=== PATIENT | male | born 1935 | race Caucasian/White ===

== ENCOUNTER 2018-07-06 06:44 | Observation (INO) ==
[2018-07-06 07:30] LABS: Hemoglobin 14.2 g/dL (12.9-16.9); Mean Corpuscular HGB Conc 34.6 g/dL (31.6-35.5); Mean Corpuscular Hemoglobin 32.3 pg (28.0-33.3); Mean Corpuscular Volume 93.4 fL (83.0-100.0); Mean Platelet Volume 10.8 fL (9.4-12.4); Platelet Count 176 K/mcL (140-400); Red Blood Count 4.39 M/mcL (4.19-5.50); Red Cell Distribution Width 12.9 % (11.5-14.5)
--- NOTE | 2018-07-06 07:35 | Emergency Department Note ---
Disposition Clinical Impression: Altered mental status Qualifiers: Altered mental status type: unspecified Qualified Code(s): R41.82 - Altered mental status, unspecified Disposition: Admitted As Inpatient Condition: Good Referrals: Fior Brasher, [employer] [Advanced Practice Nurse] - Forms: ED Satisfaction Letter Time of Disposition: 08:51 Altered Mental Status HPI - General Chief Complaint: ED Altered Mental Status Stated Complaint: fall/AMS Time Seen by Provider: 07/06/18 07:22 Source: patient, EMS Mode of arrival: EMS Limitations: no limitations Nursing Notes Reviewed: Yes Vital Signs Reviewed: Yes - History of Present Illness HPI Narrative: Pt is an 83M with last known well at 2200 on 07/05/18. Family states that pt has been confused recently and was scheduled for an MRI this morning at 0700. notes that he got up this morning at 0600, took a shower, shaved, went downstai rs and she heard a crash. When she went to investigate, she noted that the glass coffee table was broken and he was wandering around and seemed confused. When she tried to get him to sit down and talk to her, he was refusing to do as she asked and seemed combative. When EMS arrived, pt was refusing to follow commands, was babbling, and tried to sit in the refrigerator. On presentation, pt is able to follow commands, can speak clearly, and family states he is back to baseline. - Related Data Home Medications Medication Instructions Recorded Confirmed Aspirin [Adult Aspirin] 81 mg PO DAILY 07/06/18 07/06/18 Memantine [Namenda] 5 mg PO HS 07/06/18 07/06/18 Multivit-Min/FA/Lycopen/Lutein [A 1 tab PO DAILY 07/06/18 07/06/18 Thru Z Select Men 50+ Tablet] Simvastatin [Zocor] 40 mg PO HS 07/06/18 07/06/18 Allergies Allergy/AdvReac Type Severity Reaction Status Date / Time No Known Allergies Allergy Verified 07/06/18 07:31 Constitutional: Denies: fever, chills ENT ED: Denies: ear pain, throat pain Cardiovascular: Denies: chest pain, palpitations Respiratory: Denies: cough, dyspnea Gastrointestinal: Denies: abdominal pain, nausea, vomiting, diarrhea, constipation Genitourinary: Denies: urgency, dysuria Integumentary: Denies: rash, abrasion Neurological: Denies: headache, weakness Past Medical History - Past Medical History Medical history: Reports: non-contributory - Social History Smoking Status: Unknown if ever smoked Alcohol use: Reports: none Drug use: Reports: none Physical Exam - General Limitations: no limitations General appearance: alert, in no apparent distress - Head Head exam: atraumatic, normocephalic - Eye Eye exam: Present: normal appearance, PERRL, EOMI - ENT ENT exam: normal exam, normal oropharynx, mucous membranes moist - Neck Neck exam: Present: normal inspection, full ROM - Chest Chest inspection: Present: normal inspection, symmetric chest wall rise - Respiratory Respiratory exam: Present: normal lung sounds bilaterally. Absent: respiratory distress, wheezes - Cardiovascular Cardiovascular exam: Present: regular rate, normal rhythm - Abdominal Exam Abdominal exam: Present: soft, Non-Tender - Extremities Exam Extremities exam: Present: normal inspection, full ROM - Back Exam Back exam: Present: normal inspection, full ROM - Neurological Exam Neurological exam: Present: alert, oriented X3, CN II-XII intact - Expanded Neurological Exam Patient oriented to: Present: person, place, time Speech: Present: fluid speech Cranial nerves: EOM function (II, III, IV, ): Normal, facial sensation (V): Normal, facial palsy (VII): Normal, spinal accessory function (XI): Normal, tongue deviation (XII): Normal Cerebellar function: finger to nose: Normal, heel to galicia: Normal Motor strength - LUE: 5/5 Motor strength - RUE: 5/5 Motor strength - LLE: 5/5 Motor strength - RLE: 5/5 Upper motor neuron exam: tawana neglect: Absent bilaterally, pronator drift: Abs ent bilaterally, sensory extinction: Absent bilaterally Sensory exam upper extremity: light touch: Normal Sensory exam lower extremity: light touch: Normal Coma Scale Eye Opening: Spontaneous Coma Scale Motor Response: Obeys Commands Coma Scale Verbal Response: Oriented Coma Scale Total: 15 - Psychiatric Psychiatric exam: Present: normal affect, normal mood - Skin Skin exam: Present: warm, dry, intact Course Course Narrative: Pt was initially evaluated on 11 point NIH stroke scale and scored 3 points - 1 point for mild facial palsy on the left, 1 point for visual field when testing lower visual christine, and one point for mild lower extremity drift during five second testing. Pt was taken to CT where he received a CT without contrast at 0705 which was negative for bleed. Pt's arrived at 0715 and stated that she believed her was back to baseline and mentating appropriately. Pt spoke with Dr. Parrish, [facility] Stroke specialist starting at 0745 who did not recommend tPA but did recommend workup for altered mental status with MRI. - Reevaluation(s) Reevaluation #1: Pt resting comfortably in bed with at bedside. Pt encouraged to give urine specimen for testing. Will be moved to room 22. CXR showed some mild bibasilar opacities that could be consistent with PNA, but pt and family state that pt has not had any recent fevers, no coughing, reports "virus-like symptoms" the week after rosette, but has been well for the last several weeks. Time: 08:03 Vital Signs Temperature 97.5 F L 07/06/18 06:45 Pulse Rate 81 07/06/18 06:45 Respiratory Rate 18 07/06/18 06:45 Blood Pressure 131/69 07/06/18 06:45 O2 Sat by Pulse Oximetry 96 07/06/18 06:45 Temperature 97.5 F L 07/06/18 06:45 Pulse Rate 67 07/06/18 08:30 Respiratory Rate 18 07/06/18 08:30 Blood Pressure 159/85 07/06/18 08:30 O2 Sat by Pulse Oximetry 100 07/06/18 08:30 Oxygen Delivery Oxygen Delivery Room Air Altered Mental Status - MDM Narrative Medical decision making narrative: Pt initially presented as a stroke alert, but does not have any focal deficits now, is A&Ox3, GCS 15, was evaluated by [facility] and found to not be a candidate for tPA, does not have any lab abnormalities. states that patient is back to baseline. Pt has recently been under evaluation for mental status changes, dizzy spells, and was scheduled to have an MRI today at 0700. Pt was recently started on memantine for memory problems. Pt will need to be admitted for further workup of AMS. Spoke with Dr. Marroquin who agrees to accept patient and requests bed on 2A. Pt remained stable while in the department. Pt was given an opportunity to ask questions and all concerns were addressed. Pt verbalized understanding and agreement with the plan. - Differential Diagnosis Likely: altered mental status - Medical Records Medical records reviewed: Yes I reviewed the patient's medical records. - Lab Data Lab results reviewed: Yes I reviewed the patient's lab results. Result diagrams: 07/06/18 06:57 07/06/18 06:57 Lab Results 07/06/18 07/06/18 07/06/18 Range/Units 06:57 06:57 06:57 WBC 5.9 (4.3-11.1) K/mcL RBC 4.39 (4.19-5.50) M/mcL Hgb 14.2 (12.9-16.9) g/dL Hct 41.0 (37.5-50.1) % MCV 93.4 (83.0-100.0) fL MCH 32.3 (28.0-33.3) pg MCHC 34.6 (31.6-35.5) g/dL RDW 12.9 (11.5-14.5) % Plt Count 176 (140-400) K/mcL MPV 10.8 (9.4-12.4) fL Immature Gran % 0.7 (0-4) % Seg Neutrophils % 64.0 % Lymphocytes % 22.3 % Monocytes % 11.3 % Eosinophils % 1.4 % Basophils % 0.3 % Neutrophils # 3.7 (1.6-8.9) K/mcL Lymphocytes # 1.3 (0.6-4.6) K/mcL Monocytes # 0.7 (0.0-1.3) K/mcL Eosinophils # 0.1 (0.0-0.6) K/mcL Basophils # 0.0 (0.0-0.2) K/mcL PT 11.8 (9.4-12.1) Seconds INR 1.0 APTT 30.4 (26.0-36.0) Seconds Sodium 133 L (136-145) mEq/L Potassium 4.3 (3.5-5.1) mEq/L Chloride 101 (98-107) mEq/L Carbon Dioxide 25 (23-29) mEq/L BUN 17 (8-23) mg/dL Creatinine 1.73 H (0.70-1.30) mg/dL Est GFR ( Amer) 46 L (> 60) Est GFR (Non-Af Amer) 38 L (> 60) BUN/Creatinine Ratio 10 (6-26) Glucose 102 (70-105) mg/dL Calculated Osmolality 278 L (280-300) Calcium 9.3 (8.6-10.3) mg/dL Total Bilirubin 0.7 (0.3-1.0) mg/dL Direct Bilirubin 0.2 (0.0-0.2) mg/dL Indirect Bilirubin 0.5 (0.0-1.2) mg/dL AST 20 (13-39) Units/L ALT 17 (7-52) Units/L Alkaline Phosphatase 68 (34-104) Units/L Troponin I < 0.03 (< 0.04) ng/mL Serum Total Protein 7.2 (6.4-8.9) g/dL Albumin 4.2 (3.5-5.7) g/dL Globulin 3.0 (2.4-3.5) g/dL Albumin/Globulin Ratio 1.4 (1.1-2.2) Urine Color (Yellow) Urine Clarity (Clear) Urine pH (5.0-8.0) pH Units Ur Specific [place] (1.010-1.025) Urine Protein (Neg-Trace) mg/dL Urine Glucose (UA) (Normal) mg/dL Urine Ketones (Negative) mg/dL Urine Blood (Negative) Urine Nitrite (Negative) Urine Bilirubin (Negative) Urine Urobilinogen (Normal) mg/dL Ur Leukocyte Esterase (Negative) 07/06/18 Range/Units 08:16 WBC (4.3-11.1) K/mcL RBC (4.19-5.50) M/mcL Hgb (12.9-16.9) g/dL Hct (37.5-50.1) % MCV (83.0-100.0) fL MCH (28.0-33.3) pg MCHC (31.6-35.5) g/dL RDW (11.5-14.5) % Plt Count (140-400) K/mcL MPV (9.4-12.4) fL Immature Gran % (0-4) % Seg Neutrophils % % Lymphocytes % % Monocytes % % Eosinophils % % Basophils % % Neutrophils # (1.6-8.9) K/mcL Lymphocytes # (0.6-4.6) K/mcL Monocytes # (0.0-1.3) K/mcL Eosinophils # (0.0-0.6) K/mcL Basophils # (0.0-0.2) K/mcL PT (9.4-12.1) Seconds INR APTT (26.0-36.0) Seconds Sodium (136-145) mEq/L Potassium (3.5-5.1) mEq/L Chloride (98-107) mEq/L Carbon Dioxide (23-29) mEq/L BUN (8-23) mg/dL Creatinine (0.70-1.30) mg/dL Est GFR ( Amer) (> 60) Est GFR (Non-Af Amer) (> 60) BUN/Creatinine Ratio (6-26) Glucose (70-105) mg/dL Calculated Osmolality (280-300) Calcium (8.6-10.3) mg/dL Total Bilirubin (0.3-1.0) mg/dL Direct Bilirubin (0.0-0.2) mg/dL Indirect Bilirubin (0.0-1.2) mg/dL AST (13-39) Units/L ALT (7-52) Units/L Alkaline Phosphatase (34-104) Units/L Troponin I (< 0.04) ng/mL Serum Total Protein (6.4-8.9) g/dL Albumin (3.5-5.7) g/dL Globulin (2.4-3.5) g/dL Albumin/Globulin Ratio (1.1-2.2) Urine Color Yellow (Yellow) Urine Clarity Clear (Clear) Urine pH 6.0 (5.0-8.0) pH Units Ur Specific [place] 1.014 (1.010-1.025) Urine Protein 30 H (Neg-Trace) mg/dL Urine Glucose (UA) Normal (Normal) mg/dL Urine Ketones Negative (Negative) mg/dL Urine Blood Negative (Negative) Urine Nitrite Negative (Negative) Urine Bilirubin Negative (Negative) Urine Urobilinogen Normal (Normal) mg/dL Ur Leukocyte Esterase Negative (Negative) - Radiology Data Radiology results reviewed: Yes I reviewed the patient's radiology results. Head CT 07/06/18 07:02 IMPRESSION: No acute intracranial abnormality. Moderate parenchymal volume loss. Moderate chronic microvascular disease. Sinus mucosal disease. The results were reported to Dr. Angel at 7:22 a.m. on July 06, 2018. D/ / Benitez Rucker MD / Benitez Rucker MD Interpreting Provider: Benitez Rucker MD Chest X-Ray 07/06/18 07:23 IMPRESSION: Nonspecific basilar reticular lung opacities which may reflect chronic lung disease or potentially atypical pneumonia. D/ / Eleazar Aguilera MD / Eleazar Aguilera MD Interpreting Provider: Eleazar Aguilera MD Checklist - LKW: 3-4.5 hrs Add. Warnings/Precautions Patient/family understanding: The patient/family members have been counseled and understood the risk, benefit, and alternatives of treatment. NIH Stroke Scale - Level of Consciousness LOC: Alert - LOC Questions LOC Questions: Answers both correctly - LOC Commands LOC Commands: Performs both correctly - Best Gaze Best Gaze: Normal - Visual Visual: Partial hemianopia - Facial Palsy Facial Palsy: Minor asymmetry on smiling, flattened nasolabial fold - Motor Arms Motor Arm-Left: No drift for 10 seconds Motor Arm-Right: No drift for 10 seconds - Motor Legs Motor Leg-Left: Drift, does NOT hit bed Motor Leg-Right: No drift for 5 seconds - Limb Ataxia Limb Ataxia: Absent of affected limb too weak to perform exam - Sensory Sensory: Normal - Best Language Best Language: No aphasia - Dysarthria Dysarthria: Normal - Extinction and Inattention Extinction and Inattention: Normal - NIHSS Total Score NIHSS Total Score: 3
[2018-07-06 07:38] LABS: Prothrombin Time 11.8 Seconds (9.4-12.1)
[2018-07-06 07:41] LABS: Activated Partial Thrombo Time 30.4 Seconds (26.0-36.0)
--- NOTE | 2018-07-06 07:41 | Emergency Department Note ---
Disposition Clinical Impression: Altered mental status Disposition: Admitted As Inpatient Condition: Good General Adult HPI - General Chief complaint: ED Altered Mental Status Stated complaint: fall/AMS Time Seen by Provider: 07/06/18 07:22 Source: patient, EMS Limitations: no limitations Nursing Notes Reviewed: Yes Vital Signs Reviewed: Yes - History of Present Illness Pain Scale: 0 - Related Data Home Medications Medication Instructions Recorded Confirmed Aspirin [Adult Aspirin] 81 mg PO DAILY 07/06/18 07/06/18 Memantine [Namenda] 5 mg PO HS 07/06/18 07/06/18 Multivit-Min/FA/Lycopen/Lutein [A 1 tab PO DAILY 07/06/18 07/06/18 Thru Z Select Men 50+ Tablet] Simvastatin [Zocor] 40 mg PO HS 07/06/18 07/06/18 Allergies Allergy/AdvReac Type Severity Reaction Status Date / Time No Known Allergies Allergy Verified 07/06/18 07:31 Past Medical History - Past Medical History Medical history: Reports: non-contributory - Social History Smoking Status: Unknown if ever smoked Alcohol use: Reports: none Drug use: Reports: none Physical Exam - General Limitations: no limitations General appearance: alert, in no apparent distress Course Vital Signs Temperature 97.5 F L 07/06/18 06:45 Pulse Rate 81 07/06/18 06:45 Respiratory Rate 18 07/06/18 06:45 Blood Pressure 131/69 07/06/18 06:45 O2 Sat by Pulse Oximetry 96 07/06/18 06:45 Temperature 97.5 F L 07/06/18 06:45 Pulse Rate 64 07/06/18 09:44 Respiratory Rate 18 07/06/18 09:44 Blood Pressure 159/81 07/06/18 09:44 O2 Sat by Pulse Oximetry 100 07/06/18 08:30 Oxygen Delivery Oxygen Delivery Room Air Medical Decision Making - [facility] Narrative Medical decision making narrative: 0740 hrs.: Spoke with [facility] tele-neurology service. Waiting on their evaluation. Head CT 07/06/18 07:02 IMPRESSION: No acute intracranial abnormality. Moderate parenchymal volume loss. Moderate chronic microvascular disease. Sinus mucosal disease. The results were reported to Dr. Angel at 7:22 a.m. on July 06, 2018. D/ / Benitez Rucker MD / Benitez Rucker MD Interpreting Provider: Benitez Rucker MD Head CT 07/06/18 07:02 IMPRESSION: No acute intracranial abnormality. Moderate parenchymal volume loss. Moderate chronic microvascular disease. Sinus mucosal disease. The results were reported to Dr. Angel at 7:22 a.m. on July 06, 2018. D/ / Benitez Rucker MD / Benitez Rucker MD Interpreting Provider: Benitez Rucker MD Chest X-Ray 07/06/18 07:23 IMPRESSION: Nonspecific basilar reticular lung opacities which may reflect chronic lung disease or potentially atypical pneumonia. D/ / Eleazar Aguilera MD / Eleazar Aguilera MD Interpreting Provider: Eleazar Aguilera MD 950 hours: Patient stable. He is getting admitted here at hospitals accepted. - Lab Data Result diagrams: 07/06/18 06:57 07/06/18 06:57 Lab Results 07/06/18 07/06/18 07/06/18 Range/Units 06:57 06:57 06:57 WBC 5.9 (4.3-11.1) K/mcL RBC 4.39 (4.19-5.50) M/mcL Hgb 14.2 (12.9-16.9) g/dL Hct 41.0 (37.5-50.1) % MCV 93.4 (83.0-100.0) fL MCH 32.3 (28.0-33.3) pg MCHC 34.6 (31.6-35.5) g/dL RDW 12.9 (11.5-14.5) % Plt Count 176 (140-400) K/mcL MPV 10.8 (9.4-12.4) fL Immature Gran % 0.7 (0-4) % Seg Neutrophils % 64.0 % Lymphocytes % 22.3 % Monocytes % 11.3 % Eosinophils % 1.4 % Basophils % 0.3 % Neutrophils # 3.7 (1.6-8.9) K/mcL Lymphocytes # 1.3 (0.6-4.6) K/mcL Monocytes # 0.7 (0.0-1.3) K/mcL Eosinophils # 0.1 (0.0-0.6) K/mcL Basophils # 0.0 (0.0-0.2) K/mcL PT 11.8 (9.4-12.1) Seconds INR 1.0 APTT 30.4 (26.0-36.0) Seconds Sodium 133 L (136-145) mEq/L Potassium 4.3 (3.5-5.1) mEq/L Chloride 101 (98-107) mEq/L Carbon Dioxide 25 (23-29) mEq/L BUN 17 (8-23) mg/dL Creatinine 1.73 H (0.70-1.30) mg/dL Est GFR ( Amer) 46 L (> 60) Est GFR (Non-Af Amer) 38 L (> 60) BUN/Creatinine Ratio 10 (6-26) Glucose 102 (70-105) mg/dL Calculated Osmolality 278 L (280-300) Calcium 9.3 (8.6-10.3) mg/dL Total Bilirubin 0.7 (0.3-1.0) mg/dL Direct Bilirubin 0.2 (0.0-0.2) mg/dL Indirect Bilirubin 0.5 (0.0-1.2) mg/dL AST 20 (13-39) Units/L ALT 17 (7-52) Units/L Alkaline Phosphatase 68 (34-104) Units/L Troponin I < 0.03 (< 0.04) ng/mL Serum Total Protein 7.2 (6.4-8.9) g/dL Albumin 4.2 (3.5-5.7) g/dL Globulin 3.0 (2.4-3.5) g/dL Albumin/Globulin Ratio 1.4 (1.1-2.2) Urine Color (Yellow) Urine Clarity (Clear) Urine pH (5.0-8.0) pH Units Ur Specific [place] (1.010-1.025) Urine Protein (Neg-Trace) mg/dL Urine Glucose (UA) (Normal) mg/dL Urine Ketones (Negative) mg/dL Urine Blood (Negative) Urine Nitrite (Negative) Urine Bilirubin (Negative) Urine Urobilinogen (Normal) mg/dL Ur Leukocyte Esterase (Negative) Urine Microscopic RBC (0-3) per hpf Urine Microscopic WBC (0-3) per hpf Ur Squamous Epith Cells (None-Few) per lpf Urine Bacteria (None-Few) per hpf Hyaline Casts (None-Few) per lpf Ur Culture Indicated? (NO) 07/06/18 Range/Units 08:16 WBC (4.3-11.1) K/mcL RBC (4.19-5.50) M/mcL Hgb (12.9-16.9) g/dL Hct (37.5-50.1) % MCV (83.0-100.0) fL MCH (28.0-33.3) pg MCHC (31.6-35.5) g/dL RDW (11.5-14.5) % Plt Count (140-400) K/mcL MPV (9.4-12.4) fL Immature Gran % (0-4) % Seg Neutrophils % % Lymphocytes % % Monocytes % % Eosinophils % % Basophils % % Neutrophils # (1.6-8.9) K/mcL Lymphocytes # (0.6-4.6) K/mcL Monocytes # (0.0-1.3) K/mcL Eosinophils # (0.0-0.6) K/mcL Basophils # (0.0-0.2) K/mcL PT (9.4-12.1) Seconds INR APTT (26.0-36.0) Seconds Sodium (136-145) mEq/L Potassium (3.5-5.1) mEq/L Chloride (98-107) mEq/L Carbon Dioxide (23-29) mEq/L BUN (8-23) mg/dL Creatinine (0.70-1.30) mg/dL Est GFR ( Amer) (> 60) Est GFR (Non-Af Amer) (> 60) BUN/Creatinine Ratio (6-26) Glucose (70-105) mg/dL Calculated Osmolality (280-300) Calcium (8.6-10.3) mg/dL Total Bilirubin (0.3-1.0) mg/dL Direct Bilirubin (0.0-0.2) mg/dL Indirect Bilirubin (0.0-1.2) mg/dL AST (13-39) Units/L ALT (7-52) Units/L Alkaline Phosphatase (34-104) Units/L Troponin I (< 0.04) ng/mL Serum Total Protein (6.4-8.9) g/dL Albumin (3.5-5.7) g/dL Globulin (2.4-3.5) g/dL Albumin/Globulin Ratio (1.1-2.2) Urine Color Yellow (Yellow) Urine Clarity Clear (Clear) Urine pH 6.0 (5.0-8.0) pH Units Ur Specific [place] 1.014 (1.010-1.025) Urine Protein 30 H (Neg-Trace) mg/dL Urine Glucose (UA) Normal (Normal) mg/dL Urine Ketones Negative (Negative) mg/dL Urine Blood Negative (Negative) Urine Nitrite Negative (Negative) Urine Bilirubin Negative (Negative) Urine Urobilinogen Normal (Normal) mg/dL Ur Leukocyte Esterase Negative (Negative) Urine Microscopic RBC 0-3 (0-3) per hpf Urine Microscopic WBC 0-3 (0-3) per hpf Ur Squamous Epith Cells Few (None-Few) per lpf Urine Bacteria Few (None-Few) per hpf Hyaline Casts Few (None-Few) per lpf Ur Culture Indicated? NO (NO) Critical Care Time Critical Care Time: Yes Total Critical Care Time: 35 Attestation: Excluding any separately billable procedures. Attestation Statement - Attestation Attestation: This documentation is done with the assistance of Dragon dictation. Despite efforts made to ensure accuracy, there may be inaccuracies in snow removal/plowing or spelling and typographical errors. I examined this patient and my medical decision-making was reviewed with the Resident Physician. I agree with the documented findings, disposition and treatment plan as described except to the extent set forth below. Patient seen and evaluated by Dr. Allen and myself, I agree with her evaluation management plan, I supervised the care the patient's stay. Patient's in the process of a workup for altered mental status. From what says over the past few months he has had increasing forgetfulness and they think this could be dementia versus Alzheimer's. He is on a medication that they think starts with an M, she is uncertain of the name. However they started that back in April. He was actually scheduled for an MRI this morning. Said they went to bed about 10:00 last night he had no complaints. Then when he was up this morning she came down and noticed that he was confused wandering, the coffee table was upset and he is not certain what was going on. She called radhaad. They noticed no focal deficits. He was called as a stroke alert here by the overnight physician and was in CT. However on exam he has no deficits. His states he is back to his normal mental status. His initial stroke CT shows no acute deficits. Read by radiology and over read by us. We will finish with the workup here and then most likely be an admission. I do not think he qualifies for TPA at this time due to more than 4 hours since his last known well and he is back to his baseline at this point. We will speak to [facility] tele-neurology service.
[2018-07-06 07:45] LABS: Alanine Aminotransferase 17 Units/L (7-52); Albumin 4.2 g/dL (3.5-5.7); Albumin/Globulin Ratio 1.4 (1.1-2.2); Alkaline Phosphatase 68 Units/L (34-104); Aspartate Amino Transferase 20 Units/L (13-39); BUN/Creatinine Ratio 10 (6-26); Bilirubin,Direct 0.2 mg/dL (0.0-0.2); Bilirubin,Indirect 0.5 mg/dL (0.0-1.2); Bilirubin,Total 0.7 mg/dL (0.3-1.0); Blood Urea Nitrogen 17 mg/dL (8-23); Calcium 9.3 mg/dL (8.6-10.3); Carbon Dioxide 25 mEq/L (23-29); Chloride 101 mEq/L (98-107); Glucose 102 mg/dL (70-105); Osmolality,Calculated 278 (280-300); Potassium 4.3 mEq/L (3.5-5.1); Sodium 133 mEq/L (136-145); Total Protein 7.2 g/dL (6.4-8.9); Troponin I < 0.03 ng/mL (< 0.04); eGFR For Non-African Americans 38 (> 60)
[2018-07-06 07:49] LABS: Basophils % 0.3 %; Eosinophils # 0.1 K/mcL (0.0-0.6); Eosinophils % 1.4 %; Immature Granulocytes % 0.7 % (0-4); Lymphocytes # 1.3 K/mcL (0.6-4.6); Lymphocytes % 22.3 %; Monocytes # 0.7 K/mcL (0.0-1.3); Monocytes % 11.3 %; Neutrophils # 3.7 K/mcL (1.6-8.9)
[2018-07-06 08:22] LABS: Bilirubin,Urine Negative (Negative); Blood,Urine Negative (Negative); Clarity,Urine Clear (Clear); Color,Urine Yellow (Yellow); Glucose,Urine (UA) Normal (Normal); Ketones,Urine Negative (Negative); Leukocyte Esterase,Urine Negative (Negative); Nitrite,Urine Negative (Negative); Protein,Urine 30 mg/dL (Neg-Trace); Specific Gravity,Urine 1.014 (1.010-1.025); Urobilinogen,Urine Normal (Normal)
[2018-07-06 08:45] LABS: RBC,Urine 0-3 per hpf (0-3)
[2018-07-06 08:58] LABS: Squamous Epithelial Cell,Urine Few per lpf (None-Few)
[2018-07-06 08:59] LABS: Bacteria,Urine Few per hpf (None-Few); Hyaline Casts,Urine Few per lpf (None-Few); WBC,Urine 0-3 per hpf (0-3)
--- NOTE | 2018-07-06 11:51 | Electrocardiograph Report ---
[address] [place], [place] [address] Test Date: 2018-07-06 Pat Name: Bony Calderon Department: [id number] Room: 3B41 Gender: M Gauger Chief: : 1935 Requested By: Navya Allen Order Number: [id number] Reading MD: Lester Tovar Measurements Intervals [place] Rate: 71 P: 47 KS: 168 QRS: 34 QRSD: 88 T: 58 QT: 410 QTc: 446 Interpretive Statements Sinus rhythm Ventricular premature complex Electronically Signed On 07-06-2018 11:49:38 EST by Lester Tovar
[2018-07-06] MEDS ORDERED: Naloxone 0.4 MG/ML INJ IVP PRN (12:33)
--- NOTE | 2018-07-06 21:29 | Internal Med History&Physical ---
Date of Encounter: 07/06/18 Time of Encounter: 11:00 Internal Medicine - H&P: HPI Chief complaint: Confusion Admitted From: Home Plans for Post Hospital Care: Home History of present illness: Patient is 83-year-old male with past medical history significant for hyperlipidemia with new concerns for of memory loss with suspicion of new onset of dementia who presents to the ER on 07/06/18 due to confusion. who is present at bedside reports that patient has experienced memory loss dating back to November 2017 where his activities of daily living such as cooking and going grocery shopping has decreased. She has also been forgetful with conversations. Patient was recently started on Namenda by primary care provider. reports that today however patient appeared to be more confused and not making sense of brought him into the ER for evaluation. In the ER CT of the head showed no acute intracranial abnormalities. Patient will be admitted to the observation unit for CVA/TIA workup Past Med Surg Social Fam HX - Past Medical History Medical history: non-contributory - Past Surgical History Surgical History: no surgical history - Social History Smoking Status: Unknown if ever smoked Alcohol use: none Drug use: none - Family History Mother History Unknown: Yes Living Status: Father History Unknown: Yes Living Status: Internal Medicine - H&P: Meds Aspirin [Adult Aspirin] 81 mg PO DAILY 07/06/18 [History] Memantine [Namenda] 5 mg PO HS 07/06/18 [History] Multivit-Min/FA/Lycopen/Lutein [A Thru Z Select Men 50+ Tablet] 1 tab PO DAILY 07/06/18 [History] Simvastatin [Zocor] 40 mg PO HS 07/06/18 [History] Allergy/AdvReac Type Severity Reaction Status Date / Time No Known Allergies Allergy Verified 07/06/18 07:31 All Systems PM: A 10-system review of systems was performed and is negative for pertinent findings except as documented above in the HPI. - Constitutional Vitals: Temp Pulse Resp BP Pulse Ox 97.6 F 72 14 116/77 96 07/06/18 19:06 07/06/18 19:06 07/06/18 19:06 07/06/18 19:06 07/06/18 19:06 General appearance: Present: A&O X 3 Exam: As above - Head Head exam: Present: normocephalic - Eye Eye exam: Present: normal appearance, nystagmus - ENT ENT exam: Present: mucous membranes moist - Respiratory Respiratory exam: Present: CTAB. Absent: accessory muscle use, rales, rhonchi, wheezes - Cardiovascular Cardiovascular exam: Present: RRR, +S1, +S2. Absent: diastolic murmur, gallop, rubs, systolic murmur - Extremities Exam Extremities exam: Absent: pedal edema - Expanded Neurological Exam Neurological exam expanded: Absent: expressive aphasia Speech: Present: fluid speech. Absent: expressive aphasia, stutter Cranial Nerves: nystagmus PM: Normal, tongue deviation PM: Normal Neuro motor strength exam: LUE: 5, RUE: 5, LLE: 5, RLE: 5 - Psychiatric Psychiatric exam: Present: normal mood - Skin Skin exam: Present: normal color Internal Med - H&P Results - Labs CBC & Chem 7: 07/06/18 06:57 07/06/18 06:57 Labs: Short CBC 07/06/18 Range/Units 06:57 WBC 5.9 (4.3-11.1) K/mcL Hgb 14.2 (12.9-16.9) g/dL Hct 41.0 (37.5-50.1) % Plt Count 176 (140-400) K/mcL Neutrophils # 3.7 (1.6-8.9) K/mcL BMP 07/06/18 06:57 Sodium 133 L Potassium 4.3 Chloride 101 Carbon Dioxide 25 BUN 17 Creatinine 1.73 H Glucose 102 Calcium 9.3 Cardiac Enzymes 07/06/18 Range/Units 06:57 Troponin I < 0.03 (< 0.04) ng/mL Liver Function 07/06/18 Range/Units 06:57 Total Bilirubin 0.7 (0.3-1.0) mg/dL Direct Bilirubin 0.2 (0.0-0.2) mg/dL AST 20 (13-39) Units/L ALT 17 (7-52) Units/L Alkaline Phosphatase 68 (34-104) Units/L Albumin 4.2 (3.5-5.7) g/dL Urine 07/06/18 Range/Units 08:16 Urine Color Yellow (Yellow) Urine Clarity Clear (Clear) Urine pH 6.0 (5.0-8.0) pH Units Ur Specific [place] 1.014 (1.010-1.025) Urine Protein 30 H (Neg-Trace) mg/dL Urine Glucose (UA) Normal (Normal) mg/dL - Impressions ITS Impressions Head CT 07/06/18 07:02 IMPRESSION: No acute intracranial abnormality. Moderate parenchymal volume loss. Moderate chronic microvascular disease. Sinus mucosal disease. The results were reported to Dr. Angel at 7:22 a.m. on July 06, 2018. D/ / Benitez Rucker MD / Benitez Rucker MD Interpreting Provider: Benitez Rucker MD Chest X-Ray 07/06/18 07:23 IMPRESSION: Nonspecific basilar reticular lung opacities which may reflect chronic lung disease or potentially atypical pneumonia. D/ / Eleazar Aguilera MD / Eleazar Aguilera MD Interpreting Provider: Eleazar Aguilera MD Brain MRI 07/06/18 11:03 IMPRESSION: Cerebral atrophy. Chronic small vessel ischemic changes. No acute intracranial abnormality. D/ / 07/06/2018 15:07:41 Iza Dean MD / yessi Interpreting Provider: Iza Dean MD Head MRA 07/06/18 11:03 IMPRESSION: Mild, less than 50%, stenosis of the right internal carotid artery by NASCET criteria. Moderate, 50% to 69%, stenosis of the left internal carotid artery by NASCET criteria. D/ / 07/06/2018 14:32:16 Manuel Otto MD / héctor Interpreting Provider: Manuel Otto MD Neck MRA 07/06/18 11:03 IMPRESSION: Mild, less than 50%, stenosis of the right internal carotid artery by NASCET criteria. Moderate, 50% to 69%, stenosis of the left internal carotid artery by NASCET criteria. D/ / 07/06/2018 14:32:16 Manuel Otto MD / héctor Interpreting Provider: Manuel Otto MD - Assessment and plan (1) Altered mental status Current Visit: Yes Status: Acute Assessment and plan: Patient presents with confusion which has resolved on examination CT of the head negative for any acute intracranial findings MRI/MRA of brain pending Consult neurology and appreciate recommendations Qualifiers: Altered mental status type: unspecified Qualified Code(s): R41.82 - Altered mental status, unspecified (2) Memory loss Current Visit: Yes Status: Acute Assessment and plan: Continue home medication on Namenda (3) HLD (hyperlipidemia) Current Visit: Yes Status: Acute Assessment and plan: Continue statin Qualifiers: Hyperlipidemia type: unspecified Qualified Code(s): E78.5 - Hyperlipidemia, unspecified (4) DVT prophylaxis Current Visit: Yes Status: Acute Assessment and plan: DVT prophylaxis - Time Spent With Patient Total time spent is greater than 50% in coordination of care (as documented) at patient's floor/unit and/or counseling patient:
[2018-07-06] MEDS: *HR* Heparin 5,000 UNIT/ML VIAL SQ SCH (23:18)
[2018-07-07 04:36] LABS: Basophils % 0.2 %; Eosinophils # 0.1 K/mcL (0.0-0.6); Eosinophils % 1.1 %; Hematocrit 35.5 % (37.5-50.1); Immature Granulocytes % 0.6 % (0-4); Lymphocytes # 1.4 K/mcL (0.6-4.6); Lymphocytes % 29.1 %; Mean Corpuscular HGB Conc 34.4 g/dL (31.6-35.5); Mean Corpuscular Hemoglobin 31.9 pg (28.0-33.3); Mean Corpuscular Volume 92.7 fL (83.0-100.0); Mean Platelet Volume 10.8 fL (9.4-12.4); Monocytes # 0.7 K/mcL (0.0-1.3); Monocytes % 14.8 %; Neutrophils # 2.5 K/mcL (1.6-8.9); Platelet Count 139 K/mcL (140-400); Red Blood Count 3.83 M/mcL (4.19-5.50); Red Cell Distribution Width 12.8 % (11.5-14.5); Segmented Neutrophils % 54.2 %
[2018-07-07 04:40] LABS: Calcium 8.7 mg/dL (8.6-10.3); Potassium 4.4 mEq/L (3.5-5.1)
[2018-07-07 04:51] LABS: Hemoglobin 12.2 g/dL (12.9-16.9)
[2018-07-07] MEDS: *HR* Heparin 5,000 UNIT/ML VIAL SQ SCH ×3 (05:56→22:39)
--- NOTE | 2018-07-07 07:58 | Internal Med Progress Note ---
<AttilasubhashMaura marrero - Last Filed: 07/07/18 17:01> Hospitalist Progress Note - Encounter Date of Encounter: 07/07/18 - Exam Vitals: Temp Pulse Resp BP Pulse Ox 97.4 F L 66 18 139/78 95 07/07/18 15:19 07/07/18 15:19 07/07/18 15:19 07/07/18 15:19 07/07/18 15:19 - Assessment and Plan (1) Altered mental status Current Visit: Yes Status: Acute (2) Memory loss Current Visit: Yes Status: Acute (3) HLD (hyperlipidemia) Current Visit: Yes Status: Acute (4) DVT prophylaxis Current Visit: Yes Status: Acute - Time Spent with Patient Total time spent is greater than 50% in coordination of care (as documented) at patient's floor/unit and/or counseling patient: Internal Medicine: Result - Labs CBC & Chem 7: 07/07/18 04:08 07/07/18 04:08 Labs: Short CBC 07/07/18 Range/Units 04:08 WBC 4.7 (4.3-11.1) K/mcL Hgb 12.2 L D (12.9-16.9) g/dL Hct 35.5 L (37.5-50.1) % Plt Count 139 L (140-400) K/mcL Neutrophils # 2.5 (1.6-8.9) K/mcL BMP 07/07/18 04:08 Sodium 132 L Potassium 4.4 Chloride 103 Carbon Dioxide 22 L BUN 22 Creatinine 1.52 H Glucose 96 Calcium 8.7 Liver Function 07/07/18 Range/Units 14:29 AST 20 (13-39) Units/L ALT 15 (7-52) Units/L - ABG Interpretation ABG results: PT/INR, D-dimer PT 11.8 Seconds (9.4-12.1) 07/06/18 06:57 Consult Discharge Plan - Plan Referrals: Fior Brasher, [facility] [Primary Care Provider] - (Hospital follow up appointment has been requested. Office will call with date and time of appointment. ) - Attending Attestation I examined this patient and my medical decision-making was reviewed with the Resident Physician. I agree with the documented findings, disposition and treatment plan as described except to the extent set forth below. <Essence Magaña N - Last Filed: 07/07/18 22:08> Hospitalist Progress Note - Encounter Date of Encounter: 07/07/18 Time of Encounter: 07:58 - Subjective Interval History: Mr. Calderon was seen and evaluated at the bedside. He states that there is nothing wrong with him, and that he is only here to please his . He denies any confusion or changes in his health. He is attempting to remove his gown so he can leave the room, and becomes agitated when stopped. His , who is present at the bedside, states that his memory loss started last summer, but has been progressing since early fall. She reports strange behavior yesterday, which prompted her to bring him to he ED for evaluation. - Exam Vitals: Temp Pulse Resp BP Pulse Ox 97.6 F 66 15 177/89 96 07/07/18 06:47 07/07/18 06:47 07/07/18 06:47 07/07/18 06:47 07/07/18 06:47 Exam: GENERAL: Elderly male sitting in the chair at the bedside. He appears agitated and repeatedly tries to remove his gown and get out of the chair to ambulate. HEENT: Atraumatic and normocephalic. CARDIOVASCULAR: Regular rate and rhythm. S1 and S2 present. No murmurs, gallops, or rubs appreciated. RESPIRATORY: CTA bilaterally. GASTROINTESTINAL: Abdomen is soft, nontender, and nondistended. EXTREMITIES: No clubbing, cyanosis, or edema present. PSYCHIATRIC: Patient appears agitated and irritable. NEUROLOGIC: Alert and oriented to self. Denies that he is in the hospital, and states that he has been here for "a week". 5/5 muscle strength in bilateral upper and lower extremities. - Assessment and Plan (1) Altered mental status Current Visit: Yes Status: Acute Assessment and Plan: Patient has had acutely worsening memory loss and altered mental status. At the time of assessment this afternoon, he was orientd to self, but was unable to state his location or the current president correctly. He frequently tried to get up and leave the room, and became agitated when his would try to dissuade him from doing so. 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 - Sitter assigned for patient safety and to provide reassurrance/reorientation as needed - Serum TSH and B12 are within normal limits; RPR and MMA pending - Consider use of IV/IM haldol if agitation recurs/worsens - Appreciate neurology recommendations (2) Memory loss Current Visit: Yes Status: Acute Assessment and Plan: - Continue home dose of Namenda 5mg QHS (3) HLD (hyperlipidemia) Current Visit: Yes Status: Acute Assessment and Plan: - Continue home medication of simvastatin 40mg QHS (4) DVT prophylaxis Current Visit: Yes Status: Acute - Time Spent with Patient Total time spent is greater than 50% in coordination of care (as documented) at patient's floor/unit and/or counseling patient: Internal Medicine: Result - Labs CBC & Chem 7: 07/07/18 19:52 07/07/18 04:08 Labs: Short CBC 07/06/18 07/07/18 Range/Units 06:57 04:08 WBC 4.7 (4.3-11.1) K/mcL Hgb 12.2 L D (12.9-16.9) g/dL Hct 35.5 L (37.5-50.1) % Plt Count 139 L (140-400) K/mcL Neutrophils # 3.7 2.5 (1.6-8.9) K/mcL BMP 07/07/18 04:08 Sodium 132 L Potassium 4.4 Chloride 103 Carbon Dioxide 22 L BUN 22 Creatinine 1.52 H Glucose 96 Calcium 8.7 Urine 07/06/18 Range/Units 08:16 Urine Color Yellow (Yellow) Urine Clarity Clear (Clear) Urine pH 6.0 (5.0-8.0) pH Units Ur Specific [place] 1.014 (1.010-1.025) Urine Protein 30 H (Neg-Trace) mg/dL Urine Glucose (UA) Normal (Normal) mg/dL - ABG Interpretation ABG results: PT/INR, D-dimer PT 11.8 Seconds (9.4-12.1) 07/06/18 06:57 - Impressions Impressions Brain MRI 07/06/18 11:03 IMPRESSION: Cerebral atrophy. Chronic small vessel ischemic changes. No acute intracranial abnormality. D/ / 07/06/2018 15:07:41 Iza Dean MD / yessi Interpreting Provider: Iza Dean MD Head MRA 07/06/18 11:03 IMPRESSION: Mild, less than 50%, stenosis of the right internal carotid artery by NASCET criteria. Moderate, 50% to 69%, stenosis of the left internal carotid artery by NASCET criteria. D/ / 07/06/2018 14:32:16 Manuel Otto MD / héctor Interpreting Provider: Manuel Otto MD Neck MRA 07/06/18 11:03 IMPRESSION: Mild, less than 50%, stenosis of the right internal carotid artery by NASCET criteria. Moderate, 50% to 69%, stenosis of the left internal carotid artery by NASCET criteria. D/ / 07/06/2018 14:32:16 Manuel Otto MD / héctor Interpreting Provider: Manuel Otto MD ____ <Maura Nice - Last Filed: 07/07/18 17:01> (1) Altered mental status Qualifiers: Altered mental status type: unspecified Qualified Code(s): R41.82 - Altered mental status, unspecified (3) HLD (hyperlipidemia) Qualifiers: Hyperlipidemia type: unspecified Qualified Code(s): E78.5 - Hyperlipidemia, unspecified <Essence Magaña N - Last Filed: 07/07/18 22:08> (1) Altered mental status Qualifiers: Altered mental status type: unspecified Qualified Code(s): R41.82 - Altered mental status, unspecified (3) HLD (hyperlipidemia) Qualifiers: Hyperlipidemia type: unspecified Qualified Code(s): E78.5 - Hyperlipidemia, unspecified
[2018-07-07] MEDS: Aspirin Enteric Coated 81 MG Tablet PO SCH (09:21)
[2018-07-07] MEDS: Multivit/Ca/Min/Fe/FA 1 TAB TABLET PO SCH (09:21)
[2018-07-07] MEDS ORDERED: Haloperidol Lactate 5 MG/ML VIAL IVP ONE ×2 (10:57→19:26)
--- NOTE | 2018-07-07 12:15 | Neurology - Consult Note ---
Date of Encounter: 07/07/18 Time of Encounter: 12:08 Assessment and Plan (1) Altered mental status Current Visit: Yes Status: Acute My primary suspicion is that this patient has a mixed type of dementia. The MRI scan does show a significant element of cortical atrophy along with fairly severe chronic deep white matter ischemic change. I will defer to internal medicine as to whether not he may have pneumonia. However I see no obvious other changes in the MRI scan of the brain or MRA scans of the brain and carotids that suggests another underlying process. No evidence to suspect vasculitis, acute stroke or paraneoplastic process. I will completed precursory dementia workup to include vitamin B12 folate, thyroid panel, sedimentation rate and RPR. If all these tests are negative then I would simply recommend adding Aricept 5 mg daily and then titrating up to 10 mg daily after one month. I would also like to entertain the possibility of partial seizure and we will order an EEG as well. Qualifiers: Altered mental status type: unspecified Qualified Code(s): R41.82 - Altered mental status, unspecified History of Present Illness HPI: Mr. Calderon is a 83 year old male who is being seen for neurologic consultation at the request of the hospitalist secondary to changes in mental status. His is present at the bedside and helps to corroborate details. She informed me that he first began having intermittent episodes of confusion back in December of last summer. However he is experiencing more frequent episodes of confusion and it is taking longer for him to recover from from them. He denies any headaches. His mentions that he tends to sleep more frequently. Denies headaches, denies any history of alcohol use or abuse. Denies any recent changes in medication. Denies any recent trauma. The MRI scan of the brain I did review personally. It does reveal a significant element of cortical atrophy as well as significant deep white matter ischemic change. His laboratory work was fairly unremarkable however. Urinalysis was negative. Chest x-ray revealed questionable bibasilar infiltrates. According to his he did not have some type of "bugs" about a month or so ago but has since recovered. He is very pleasant. In general he is able to take his own medication without problems. Past Med Surg Social Fam HX - Past Medical History Medical history: non-contributory - Past Surgical History Surgical History: no surgical history - Social History Smoking Status: Unknown if ever smoked Alcohol use: none Drug use: none - Family History Mother History Unknown: Yes Living Status: Father History Unknown: Yes Living Status: Medications and Allergies Aspirin [Adult Aspirin] 81 mg PO DAILY 07/06/18 [History] Memantine [Namenda] 5 mg PO HS 07/06/18 [History] Multivit-Min/FA/Lycopen/Lutein [A Thru Z Select Men 50+ Tablet] 1 tab PO DAILY 07/06/18 [History] Simvastatin [Zocor] 40 mg PO HS 07/06/18 [History] Allergy/AdvReac Type Severity Reaction Status Date / Time No Known Allergies Allergy Verified 07/06/18 07:31 All Systems: The remainder of the systems were reviewed and are negative Review of Systems: The balance of the systems review is negative. Physical Examination - Vital Signs Vital Signs: Initial Vital Signs Temp Pulse Resp BP Pulse Ox 97.5 F L 81 18 131/69 96 07/06/18 06:45 07/06/18 06:45 07/06/18 06:45 07/06/18 06:45 07/06/18 06:45 - Exam Exam: General Examination: *CONSTITUTIONAL: normal *GENERAL APPEARANCE OF PATIENT appears healthy and well groomed *EYES: pupils equal, round, reactive to light and accommodation, conjunctiva clear without masses or ulcerations, fundi normal. *CARDIOVASCULAR no peripheral edema, distal temperature normal, dorsalis pedis pulses normal. Refer to vital signs Musculoskeletal: *GAIT AND STATION normal, with normal Romberg testing, no abnormalities such as broad base gait or spasticity *ASSESSMENT OF MUSCLE STRENGTH IN THE UPPER AND LOWER EXTREMITIES deltoid, bicep, tricep, mental health consultant strength, hip flexors ,anterior tibialis, dorsoflexion of the foot normal. *MUSCLE TONE IN THE UPPER AND LOWER EXTREMITIES normal. No abnormal movements, fasciculations or atrophy identified. Neurological: *ORIENTATION -he initially thought he was at home. He initially told me that the month was April, he had difficulty with the year and today's date as well. *RECURRENT AND REMOTE MEMORY recent memory is impaired however remote memories remain intact. *ATTENTION AND CONCENTRATION he is able to focus on my conversation and indulge conversations recording sports based on a superficial level. He does make eye contact and follows a simple 3 step command. He is not delirious or lethargic at all. *LANGUAGE FUNCTION no significant aphasia or dysarthia was noted. *FUND OF KNOWLEDGE he does not have full scope with current events. *MENTAL attention span and concentration normal. *CN II optic fundi were normal, no papilledema noted. *CN III,IV, PERRLA extraocular eye movements were full, no nystagmus and no ptosis noted. *CN V shows normal sensation and jaw opens symmetrically. *CN VII shows normal facial movement symmetrically, upper and lower bilaterally. *CN VIII shows no significant hearing loss on examination in the office. *CN IX,,X palate elevated symmetrically and normal gag reflex was noted. *CN XI normal strength in the sternocleidomastoid muscles, symmetrical shoulder shrugging. *CN XII tongue protruded in the midline, with normal strength and movement. *SENSORY EXAMINATION pinprick sensation intact, and light touch(vibration sense). *REFLEXES: deep tendon reflexes were 2/4 and symmetrical of the biceps, triceps and brachial radialis. Patellar reflexes were 1 symmetrically, Achilles reflexes were 1 symmetrically. No long tract signs or clonus are present. *CEREBELLAR TESTING normal finger to nose, heel/knee/galicia, and tandem walk. *PAIN LEVEL 0 Results - Laboratory Findings CBC and BMP: 07/07/18 04:08 07/07/18 04:08 Abnormal lab findings: Abnormal lab results RBC 3.83 M/mcL (4.19-5.50) L 07/07/18 04:08 Hgb 12.2 g/dL (12.9-16.9) L D 07/07/18 04:08 Hct 35.5 % (37.5-50.1) L 07/07/18 04:08 Plt Count 139 K/mcL (140-400) L 07/07/18 04:08 Sodium 132 mEq/L (136-145) L 07/07/18 04:08 Carbon Dioxide 22 mEq/L (23-29) L 07/07/18 04:08 Creatinine 1.52 mg/dL (0.70-1.30) H 07/07/18 04:08 Est GFR ( Amer) 54 (> 60) L 07/07/18 04:08 Est GFR (Non-Af Amer) 44 (> 60) L 07/07/18 04:08 Calculated Osmolality 277 (280-300) L 07/07/18 04:08 Urine Protein 30 mg/dL (Neg-Trace) H 07/06/18 08:16 Consult Discharge Plan - Plan Referrals: Fior Brasher, [facility] [Primary Care Provider] - (Hospital follow up appointment has been requested. Office will call with date and time of appointment. )
[2018-07-07] MEDS: Doxycycline 100 MG CAPSULE PO SCH (14:01)
[2018-07-07 15:16] LABS: Thyroid Stimulating Hormone 1.243 mcIU/mL (0.340-5.600)
--- NOTE | 2018-07-07 19:51 | Event Note ---
Date of Encounter: 07/07/18 Time of Encounter: 19:20 Alerted by pts nurse that the pt. was in the hallway outside his room and highly agitated. Pt. was reportedly swinging at staff. Went to assess the pt. who was now in a wheelchair in the hallway and telling staff to leave him alone. Pt. was helped back to his bed by several staff members and refused to get into bed. Pt. became more agitated and aggressive. Pt. was helped into bed and placed in 4- point soft restraints to prevent disruption of his care and IV access as well as self-destructive behavior. Pt. is admitted w/[facility] and has hx of dementia dating back to 2018. Neurology saw pt. and believes pt. to have mixed type of dementia as well as possibility of a partial seizure so EEG ordered. Head CT on 07/06 showed no acute intracranial abnormality, moderate parenchymal volume loss, moderate chronic microvascular disease, and sinus mucosal disease. MRI of the head/brain showed cerebral atrophy, chronic small vessel ischemic changes, and no acute intracranial abnormality. CBC and BMP ordered stat. 2 mg IVP Haldol ordered. Pts. BG at the time of incident was 110. EKG ordered which showed NSR and normal ECG. Neuro checks Q2HR ordered. If mentation continues to decline or pt. shows signs of neurologic deficits will repeat an MRI. BP 214/99 post- incident. 5 mg IVP hydralazine ordered w/instructions to check pts. BP Q15MIN x4 after administration. Nurse instructed to monitor pt. closely and notify me immediately of any changes. Sitter is already ordered, so when pt. is calmer and less threat to himself, others, and plan of care we will remove the soft restraints and try to re-orient the pt.
[2018-07-07 20:02] LABS: Basophils % 0.2 %; Eosinophils # 0.1 K/mcL (0.0-0.6); Eosinophils % 1.4 %; Hemoglobin 11.9 g/dL (12.9-16.9); Immature Granulocytes % 0.9 % (0-4); Lymphocytes # 1.3 K/mcL (0.6-4.6); Lymphocytes % 30.9 %; Mean Corpuscular Hemoglobin 31.6 pg (28.0-33.3); Mean Corpuscular Volume 93.1 fL (83.0-100.0); Mean Platelet Volume 10.7 fL (9.4-12.4); Monocytes # 0.6 K/mcL (0.0-1.3); Monocytes % 13.5 %; Neutrophils # 2.3 K/mcL (1.6-8.9); Platelet Count 129 K/mcL (140-400); Red Blood Count 3.76 M/mcL (4.19-5.50); Red Cell Distribution Width 12.9 % (11.5-14.5); Segmented Neutrophils % 53.1 %
[2018-07-07] MEDS ORDERED: diazePAM 10 MG/2 ML SYRINGE IVP ONE (21:08)
[2018-07-08] MEDS: Doxycycline 100 MG CAPSULE PO SCH ×3 (00:50→23:48)
[2018-07-08] MEDS: *HR* Heparin 5,000 UNIT/ML VIAL SQ SCH ×3 (05:14→21:59)
[2018-07-08 06:34] LABS: Basophils % 0.2 %; Eosinophils # 0.1 K/mcL (0.0-0.6); Hematocrit 35.8 % (37.5-50.1); Hemoglobin 12.3 g/dL (12.9-16.9); Immature Granulocytes % 0.4 % (0-4); Lymphocytes # 1.2 K/mcL (0.6-4.6); Lymphocytes % 25.2 %; Mean Corpuscular HGB Conc 34.4 g/dL (31.6-35.5); Mean Corpuscular Hemoglobin 31.8 pg (28.0-33.3); Mean Corpuscular Volume 92.5 fL (83.0-100.0); Monocytes # 0.7 K/mcL (0.0-1.3); Monocytes % 14.3 %; Neutrophils # 2.9 K/mcL (1.6-8.9); Platelet Count 141 K/mcL (140-400); Red Blood Count 3.87 M/mcL (4.19-5.50); Red Cell Distribution Width 12.9 % (11.5-14.5); Segmented Neutrophils % 58.9 %
[2018-07-08 06:53] LABS: BUN/Creatinine Ratio 15 (6-26); Blood Urea Nitrogen 19 mg/dL (8-23); Calcium 9.1 mg/dL (8.6-10.3); Carbon Dioxide 22 mEq/L (23-29); Chloride 105 mEq/L (98-107); Glucose 88 mg/dL (70-105); Osmolality,Calculated 280 (280-300); Potassium 4.5 mEq/L (3.5-5.1); Sodium 134 mEq/L (136-145); eGFR For Non-African Americans 53 (> 60)
--- NOTE | 2018-07-08 08:38 | Internal Med Progress Note ---
<Essence Magaña N - Last Filed: 07/08/18 12:31> Hospitalist Progress Note - Encounter Date of Encounter: 07/08/18 Time of Encounter: 08:38 - Subjective Interval History: Mr. Calderon was seen and evaluated at the bedside. He states that there is nothing wrong with him, and that he is only here to please his . He denies any confusion or changes in his health. He is attempting to remove his gown so he can leave the room, and becomes agitated when stopped. His , who is present at the bedside, states that his memory loss started last summer, but has been progressing since early fall. She reports strange behavior yesterday, which prompted her to bring him to he ED for evaluation. 07/07 - patient was seen and evaluated at the bedside. At that time he is, he was sleeping quietly, and woke easily to light touch. Patient did not appear to be agitated this morning; however, he reportedly had a great deal of agitation overnight, which required the use of both chemical and physical restraints to ensure his safety. Patient denies any acute complaints or concerns this morning, and denies any pain. - Exam Vitals: Temp Pulse Resp BP Pulse Ox 98.5 F 83 20 147/78 95 07/07/18 20:45 07/07/18 20:52 07/07/18 20:45 07/08/18 00:23 07/07/18 20:45 Exam: GENERAL: Elderly male sleeping in bed comfortably. He wakes easily to light caroline ch.. HEENT: Atraumatic and normocephalic. CARDIOVASCULAR: Regular rate and rhythm. S1 and S2 present. No murmurs, gallops, or rubs appreciated. RESPIRATORY: CTA bilaterally. EXTREMITIES: No clubbing, cyanosis, or edema present. NEUROLOGIC: Alert and oriented to self. Unable to correctly identify his current location or the current president as. 5/5 muscle strength in bilateral upper and lower extremities. - Assessment and Plan (1) Altered mental status Current Visit: Yes Status: Acute Assessment and Plan: Patient has had acutely worsening memory loss and altered mental status. 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 CXR on 07/06/2018 demonstrated nonspecific basilar reticular lung opacities which may reflect chronic lung disease or potentially atypical pneumonia. Patient reportedly had a great deal of agitation overnight, requiring both physical and chemical restraints to ensure safety. Restraints were removed this morning, and patient was calm during exam this morning. He stated current day as Monday, that he did know that it was June. He was unable to name the current president, and stated that he was [place]. - Doxycycline 100 mg BID due to chest x-ray findings possibly indicating an atypical pneumonia, as this could contribute to his acutely worsening mental status - Sitter assigned for patient safety and to provide reassurrance/reorientation as needed - Serum TSH and B12 are within normal limits; RPR and MMA pending - Consider use of IV/IM haldol if agitation recurs/worsens - Appreciate neurology recommendations (2) Memory loss Current Visit: Yes Status: Acute Assessment and Plan: - Continue home dose of Namenda 5mg QHS (3) HLD (hyperlipidemia) Current Visit: Yes Status: Acute Assessment and Plan: - Continue home medication of simvastatin 40mg QHS (4) DVT prophylaxis Current Visit: Yes Status: Acute Assessment and Plan: - Continue subcutaneous heparin (5) Pneumonia Current Visit: Yes Status: Acute - Time Spent with Patient Total time spent is greater than 50% in coordination of care (as documented) at patient's floor/unit and/or counseling patient: Internal Medicine: Result - Labs CBC & Chem 7: 07/08/18 05:57 07/08/18 05:57 Labs: Short CBC 07/07/18 07/08/18 Range/Units 19:52 05:57 WBC 4.3 4.9 (4.3-11.1) K/mcL Hgb 11.9 L 12.3 L (12.9-16.9) g/dL Hct 35.0 L 35.8 L (37.5-50.1) % Plt Count 129 L 141 (140-400) K/mcL Neutrophils # 2.3 2.9 (1.6-8.9) K/mcL BMP 07/08/18 05:57 Sodium 134 L Potassium 4.5 Chloride 105 Carbon Dioxide 22 L BUN 19 Creatinine 1.29 Glucose 88 Calcium 9.1 Liver Function 07/07/18 Range/Units 14:29 AST 20 (13-39) Units/L ALT 15 (7-52) Units/L - ABG Interpretation ABG results: PT/INR, D-dimer PT 11.8 Seconds (9.4-12.1) 07/06/18 06:57 Consult Discharge Plan - Plan Referrals: Fior Brasher, [employer] [Primary Care Provider] - (Hospital follow up appointment has been requested. Office will call with date and time of appointment. ) <Maura Nice - Last Filed: 07/08/18 15:03> Hospitalist Progress Note - Encounter Date of Encounter: 07/08/18 - Exam Vitals: Temp Pulse Resp BP Pulse Ox 97.7 F 67 16 141/76 96 07/08/18 14:37 07/08/18 14:37 07/08/18 14:37 07/08/18 14:37 07/08/18 14:37 - Assessment and Plan (1) Altered mental status Current Visit: Yes Status: Acute (2) Memory loss Current Visit: Yes Status: Acute (3) HLD (hyperlipidemia) Current Visit: Yes Status: Acute (4) DVT prophylaxis Current Visit: Yes Status: Acute (5) Pneumonia Current Visit: Yes Status: Acute - Time Spent with Patient Total time spent is greater than 50% in coordination of care (as documented) at patient's floor/unit and/or counseling patient: Internal Medicine: Result - Labs CBC & Chem 7: 07/08/18 05:57 07/08/18 05:57 Labs: Short CBC 07/07/18 07/08/18 Range/Units 19:52 05:57 WBC 4.3 4.9 (4.3-11.1) K/mcL Hgb 11.9 L 12.3 L (12.9-16.9) g/dL Hct 35.0 L 35.8 L (37.5-50.1) % Plt Count 129 L 141 (140-400) K/mcL Neutrophils # 2.3 2.9 (1.6-8.9) K/mcL BMP 07/08/18 05:57 Sodium 134 L Potassium 4.5 Chloride 105 Carbon Dioxide 22 L BUN 19 Creatinine 1.29 Glucose 88 Calcium 9.1 Liver Function 07/07/18 Range/Units 14:29 AST 20 (13-39) Units/L ALT 15 (7-52) Units/L - ABG Interpretation ABG results: PT/INR, D-dimer PT 11.8 Seconds (9.4-12.1) 07/06/18 06:57 - Attending Attestation I examined this patient and my medical decision-making was reviewed with the Resident Physician. I agree with the documented findings, disposition and treatment plan as described except to the extent set forth below. <Essence Magaña - Last Filed: 07/08/18 12:31> (1) Altered mental status Qualifiers: Altered mental status type: unspecified Qualified Code(s): R41.82 - Altered mental status, unspecified (3) HLD (hyperlipidemia) Qualifiers: Hyperlipidemia type: unspecified Qualified Code(s): E78.5 - Hyperlipidemia, unspecified <Maura Nice - Last Filed: 07/08/18 15:03> (1) Altered mental status Qualifiers: Altered mental status type: unspecified Qualified Code(s): R41.82 - Altered mental status, unspecified (3) HLD (hyperlipidemia) Qualifiers: Hyperlipidemia type: unspecified Qualified Code(s): E78.5 - Hyperlipidemia, unspecified
[2018-07-08] MEDS: Multivit/Ca/Min/Fe/FA 1 TAB TABLET PO SCH (10:49)
[2018-07-08] MEDS: Aspirin Enteric Coated 81 MG Tablet PO SCH (10:49)
--- NOTE | 2018-07-08 11:44 | EEG/EMG/Oth Biometrics Report ---
EEG Procedure Report Date of procedure: 07/08/18 EEG Procedure: Routine EEG Procedure Note: This is a report of a 21 channel bipolar and referential montage EEG. The posterior dominant rhythm consisted of moderate to low voltage theta frequency at about 7 Hz. This persists throughout much of the recording. Occasionally the posterior dominant rhythm gets up to 8 Hz alpha frequency. This rhythm does not attenuate with eye opening. Hyperventilation is not performed in recording. Patient drowsiness identified as reference by dropout of the posterior dominant rhythm and low voltage theta frequencies and occasional delta frequencies prevail. The subject does not however approach stage II sleep. Photic stimulations performed and does not produce a driving response. The EKG rhythm strip reveals normal sinus rhythm at 66 bpm. Impressions: This EEG recording is mildly abnormal and indicative of a mild generalized encephalopathy. There is no evidence of epileptiform activity identified during the study. Comment: Etiologies to explain this interpretation might include toxic, meta bolic, postictal, degenerative, medication effect. Please correlate clinically.
--- NOTE | 2018-07-08 15:49 | Neurology Progress Note ---
Date of Encounter: 07/08/18 Time of Encounter: 14:30 Assessment and Plan (1) Altered mental status Current Visit: Yes Status: Acute At this juncture I am unable to identify any additional etiologies to explain this patient's mood and behavior other than senile dementia of the Alzheimer's type. Unfortunately mood destabilization is a frequent occurrence in this condition. I might recommend a trial of cervical 25 mg to titrate up to higher dosages if necessary. I will also consider starting him on Aricept 5 mg daily and increasing this to 10 mg daily after a month. He will be my pleasure to follow up with him in my office after discharge. Otherwise I will reevaluate him at your request. Qualifiers: Altered mental status type: unspecified Qualified Code(s): R41.82 - Altered mental status, unspecified Subjective Interval history: The chart was reviewed, the patient was seen and examined. He is lying in bed sleeping peacefully when I entered the room. He is easily aroused he stated that he remembered me from yesterday however did not remember my name. He did not recall any of the topics of discussion that we had from yesterday. However he was alert to person and able to engage superficial conversation without difficulty. He is able to follow simple commands. He is in no acute distress. Objective - Constitutional Vitals: Temp Pulse Resp BP Pulse Ox 97.7 F 67 16 141/76 96 07/08/18 14:37 07/08/18 14:37 07/08/18 14:37 07/08/18 14:37 07/08/18 14:37 - Neurological Exam Additional comments: The neurologic examination was unchanged from that of my assessment dated 07/07/2017. Results - Laboratory Findings CBC and BMP: 07/08/18 05:57 07/08/18 05:57 Abnormal lab findings: Abnormal lab results RBC 3.87 M/mcL (4.19-5.50) L 07/08/18 05:57 Hgb 12.3 g/dL (12.9-16.9) L 07/08/18 05:57 Hct 35.8 % (37.5-50.1) L 07/08/18 05:57 ESR 18 mm/hr (0-10) H 07/07/18 14:29 Sodium 134 mEq/L (136-145) L 07/08/18 05:57 Carbon Dioxide 22 mEq/L (23-29) L 07/08/18 05:57 Est GFR (Non-Af Amer) 53 (> 60) L 07/08/18 05:57 POC Glucose 102 mg/dL (70-99) H 07/07/18 19:25 Urine Protein 30 mg/dL (Neg-Trace) H 07/06/18 08:16 Consult Discharge Plan - Plan Referrals: Fior Brasher, MANAGER MAC [Primary Care Provider] - (Hospital follow up appointment has been requested. Office will call with date and time of appointment. )
[2018-07-09] MEDS: *HR* Heparin 5,000 UNIT/ML VIAL SQ SCH (04:42)
[2018-07-09 05:32] LABS: Basophils % 0.2 %; Eosinophils # 0.1 K/mcL (0.0-0.6); Eosinophils % 0.9 %; Hematocrit 36.6 % (37.5-50.1); Hemoglobin 12.5 g/dL (12.9-16.9); Immature Granulocytes % 0.5 % (0-4); Lymphocytes # 1.2 K/mcL (0.6-4.6); Lymphocytes % 21.3 %; Mean Corpuscular HGB Conc 34.2 g/dL (31.6-35.5); Mean Corpuscular Hemoglobin 31.9 pg (28.0-33.3); Mean Corpuscular Volume 93.4 fL (83.0-100.0); Mean Platelet Volume 10.7 fL (9.4-12.4); Monocytes # 0.6 K/mcL (0.0-1.3); Monocytes % 10.8 %; Neutrophils # 3.7 K/mcL (1.6-8.9); Platelet Count 143 K/mcL (140-400); Red Blood Count 3.92 M/mcL (4.19-5.50); Red Cell Distribution Width 13.2 % (11.5-14.5); Segmented Neutrophils % 66.3 %
[2018-07-09 06:02] LABS: Alanine Aminotransferase 15 Units/L (7-52); Albumin 3.8 g/dL (3.5-5.7); Albumin/Globulin Ratio 1.5 (1.1-2.2); Alkaline Phosphatase 59 Units/L (34-104); Aspartate Amino Transferase 21 Units/L (13-39); BUN/Creatinine Ratio 14 (6-26); Bilirubin,Total 0.8 mg/dL (0.3-1.0); Blood Urea Nitrogen 17 mg/dL (8-23); Calcium 9.2 mg/dL (8.6-10.3); Carbon Dioxide 20 mEq/L (23-29); Chloride 106 mEq/L (98-107); Globulin 2.5 g/dL (2.4-3.5); Glucose 87 mg/dL (70-105); Osmolality,Calculated 281 (280-300); Potassium 4.3 mEq/L (3.5-5.1); Sodium 135 mEq/L (136-145); Total Protein 6.3 g/dL (6.4-8.9); eGFR For Non-African Americans 55 (> 60)
--- NOTE | 2018-07-09 08:16 | Discharge Summary ---
<Essence Magaña N - Last Filed: 07/09/18 13:59> - NOTES TO OUTPATIENT PROVIDER Notes to Outpatient Provider: Patient was admitted for TIA/stroke rule out after acute change in mental status. Laboratory workup and EEG were negative for acute cause, though chest XR demonstrated nonspecific opacities potentially due to atypical pneumonia. Patient was started on doxycycline BID x 7 days. 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 He was started on seroquel and aricept at discharge per their recommendations and is to follow up with them on an outpatient basis. Patient will likely need a repeat EKG on hosptial followup appointment, as QTc was 446 prior to start of aricept and seroquel. Orders not resulted at time of discharge: Pending orders 07/07/18 14:29 MMA (VIT B12 STATUS) Routine Treponema Pallidum Ab Routine 07/07/18 19:37 EKG [ECG 12 lead ECG] [ECG] Stat Date of Encounter: 07/09/18 Time of Encounter: 08:16 - Discharge Diagnosis (1) Altered mental status Priority: Primary Status: Acute Qualifiers: Altered mental status type: unspecified Qualified Code(s): R41.82 - Altered mental status, unspecified (2) Memory loss Priority: Secondary Status: Acute (3) HLD (hyperlipidemia) Priority: Secondary Status: Acute Qualifiers: Hyperlipidemia type: unspecified Qualified Code(s): E78.5 - Hyperlipidemia, unspecified (4) Pneumonia Priority: Secondary Status: Acute Qualifiers: Pneumonia type: due to unspecified organism Laterality: unspecified laterality Lung location: unspecified part of lung Qualified Code(s): J18.9 - Pneumonia, unspecified organism Hospital course: Mr. Calderon is a 83 year old male with a history of HLD who presented to the ED on 07/06/2018 for evaluation of acute change in mental status. His reports that he has had worsening problems with memory and attention over the last year or so, and was started on namenda by his PCP. His states that he appeared to be doing better on the morning of 07/06, as he janes early, showered, and got dressed without trouble. She reports hearing a noise, which prompted her to look for him, and states that she found him searching on the floor for something. She states that he had sat on and broken their glass coffee table, and that he exhibited bizarre behavior immediately after. This prompted her to call EMS; per review of records, patient was reportedly not following commands at the time of their arrival. Patient was initially worked up for possible stroke/TIA. Head CT demonstrated no acute abnormality, but noted moderate parenchymal vboluime loss, sinus mucosal disease, and moderate chronic microvascular disease. Similarly, brain MRI revealed cerebral atrophy and chronic small vessel ischemic changes. 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 EEG demonstrated mild abnormalities indicative of mild generalized encephalopathy. Workup for secondary causes of AMS was negative. Patient was noted to have a mildly abnormal CXR, with nonspecific basilar ret icular lung opacities reflective of chronic lung disease or poitentially atypical pneumonia. He was started on doxycycline 100mg BID x 7 days. Patient did have acute agitation overnight on 07/07/2018, and was unable to be reoriented. Chemical and physical restraints were necessary to ensure patient safety. Prior to discharge, patient was alert and oriented x2, and was unable to correctly identify his location. He was not in acute distress and did not appear agitated or upset. Patient is to start aricept 5mg and seroquel 25mg, and follow up with Dr. Villagomez in neurology on an outpatient basis. Discharge discussed with: patient, family, nurse - Time Spent with Patient Total time spent providing and/or coordinating discharge services: - Discharge Medications Prescriptions: Donepezil [Aricept] 5 mg PO HS #30 tablet Doxycycline 100 mg PO 0000,1200 #10 capsule Quetiapine Fumarate [SEROquel] 25 mg PO HS #30 tablet Home Medications: Aspirin [Adult Aspirin] 81 mg PO DAILY 07/06/18 [History] Memantine [Namenda] 5 mg PO HS 07/06/18 [History] Multivit-Min/FA/Lycopen/Lutein [A Thru Z [employer] Men 50+ Tablet] 1 tab PO DAILY 07/06/18 [History] Simvastatin [Zocor] 40 mg PO HS 07/06/18 [History] Donepezil [Aricept] 5 mg PO HS #30 tablet 07/09/18 [Rx] Doxycycline 100 mg PO 0000,1200 #10 capsule 07/09/18 [Rx] Quetiapine Fumarate [SEROquel] 25 mg PO HS #30 tablet 07/09/18 [Rx] Allergies/Adverse Reactions: Allergy/AdvReac Type Severity Reaction Status Date / Time No Known Allergies Allergy Verified 07/06/18 07:31 Date of admission: 07/06/18 08:55 Primary care physician: Fior Brasher CNP Consults: 07/06/18 11:08 Consult to Neurology [CONS] Routine Consulting Provider: [facility] Reason for Consult: CVA s/s Call Completed: Yes 07/07/18 15:29 Consult to Interpret Exam [CONS] Routine Consulting Provider: Madi Villagomez Consult to Interpret Exam: Interpret EEG Discharging clinician: Essence Magaña Anticipated date of discharge: 07/09/18 - Constitutional Vitals: Temp Pulse Resp BP Pulse Ox 97.7 F 69 16 165/77 98 07/09/18 06:58 07/09/18 06:58 07/09/18 06:58 07/09/18 06:58 07/09/18 06:58 General appearance: Present: A&O X 3 Exam: GENERAL: Elderly male sleeping in bed comfortably. He wakes easily to light touch. HEENT: Atraumatic and normocephalic. CARDIOVASCULAR: Regular rate and rhythm. S1 and S2 present. No murmurs, gallops, or rubs appreciated. RESPIRATORY: CTA bilaterally. GASTROINTESTINAL: Soft, nontender, and nondistended. EXTREMITIES: No clubbing, cyanosis, or edema present. SKIN: Warm, dry, and intact. PSYCHIATRIC: Appropriate mood and affect at this time. NEUROLOGIC: Alert and oriented to self and is able to correctly identify the current president. He is not oriented to place, [place] 5/5 muscle strength in bilateral upper and lower extremities. - Patient Status Disposition: Home, Self-Care Condition: Good Functional capacity at discharge: independent ambulation Overall status at discharge: patient is progressing back to baseline - Discharge Instructions Instructions: Doxycycline (By mouth), Donepezil (By mouth), Quetiapine (By mouth) Follow Up With: Fior Brasher CNP [Primary Care Provider] - 07/16/18 3:00 pm () Madi Villagomez DO [Partnered Physician] - (An appointment has been requested. The office will contact you at home to schedule an appointment. ) Additional Instructions: Follow up with your PCP in 3-5 days. Follow up with Dr. Villagomez in neurology as scheduled. Continue home medications. Start taking aricept 5mg daily and seroquel 25mg daily. Take doxycycline 2x/day until finished. Return to the ED if symptoms recur, or if new complaints or concerns arise. - Diet and Activity Activity: increase activity as tolerated Diet: advance to your usual diet <Maura Nice - Last Filed: 07/09/18 14:26> Orders not resulted at time of discharge: Pending orders 07/07/18 14:29 MMA (VIT B12 STATUS) Routine 07/07/18 19:37 EKG [ECG 12 lead ECG] [ECG] Stat Date of Encounter: 07/09/18 - Discharge Diagnosis (1) Altered mental status Status: Acute Qualifiers: Altered mental status type: unspecified Qualified Code(s): R41.82 - Altered mental status, unspecified (2) Memory loss Status: Acute (3) HLD (hyperlipidemia) Status: Acute Qualifiers: Hyperlipidemia type: unspecified Qualified Code(s): E78.5 - Hyperlipidemia, unspecified (4) Pneumonia Status: Acute Qualifiers: Pneumonia type: due to unspecified organism Laterality: unspecified laterality Lung location: unspecified part of lung Qualified Code(s): J18.9 - Pneumonia, unspecified organism Hospital course: Mr. Calderon is a 83 year old male - Time Spent with Patient Total time spent providing and/or coordinating discharge services: Date of admission: 07/06/18 08:55 Primary care physician: Fior Brasher CNP Consults: 07/06/18 11:08 Consult to Neurology [CONS] Routine Consulting Provider: [facility] Reason for Consult: CVA s/s Call Completed: Yes 07/07/18 15:29 Consult to Interpret Exam [CONS] Routine Consulting Provider: Madi Villagomez Consult to Interpret Exam: Interpret EEG - Constitutional Vitals: Temp Pulse Resp BP Pulse Ox 97.6 F 72 16 138/78 98 07/09/18 11:11 07/09/18 11:11 07/09/18 11:11 07/09/18 11:11 07/09/18 11:11 - Attending Attestation I examined this patient and my medical decision-making was reviewed with the Resident Physician. I agree with the documented findings, disposition and treatment plan as described except to the extent set forth below.
[2018-07-09] MEDS: Multivit/Ca/Min/Fe/FA 1 TAB TABLET PO SCH (08:47)
[2018-07-09] MEDS: Aspirin Enteric Coated 81 MG Tablet PO SCH (08:47)
[2018-07-09 11:12] VITALS: BP 138/78
[2018-07-09] MEDS: Doxycycline 100 MG CAPSULE PO SCH (11:26)
== END 2018-07-09 15:11 | disposition home or self-care (01) ==
LOC: EMEROOARM 06:44 → 3BNU 06:44 → SUATTDRO 08:55 → 3BNU 10:34
PROVIDERS: ADMIT Hospitalist; ATTEND Student in an Organized Health Care Education/Training Program

== ENCOUNTER 2021-03-05 11:28 | Observation (INO) ==
[2021-03-05] MEDS ORDERED: 0.9 % Sodium Chloride 500 ML IVC ONE (11:40)
[2021-03-05] MEDS ORDERED: Isovue-370 500 ML BOTTLE IVP ONE (11:44)
[2021-03-05 12:27] LABS: Basophils % 0.2 %; Eosinophils # 0.1 K/mcL (0.0-0.6); Eosinophils % 0.7 %; Hematocrit 41.6 % (37.5-50.1); Hemoglobin 13.5 g/dL (12.9-16.9); Immature Granulocytes % 0.4 % (0-4); Lymphocytes % 9.7 %; Mean Corpuscular HGB Conc 32.5 g/dL (31.6-35.5); Mean Corpuscular Hemoglobin 32.1 pg (28.0-33.3); Mean Corpuscular Volume 98.8 fL (83.0-100.0); Mean Platelet Volume 12.1 fL (9.4-12.4); Monocytes # 0.7 K/mcL (0.0-1.3); Platelet Count 123 K/mcL (140-400); Red Blood Count 4.21 M/mcL (4.19-5.50); Red Cell Distribution Width 13.3 % (11.5-14.5); White Blood Count 9.8 K/mcL (4.3-11.1)
[2021-03-05 12:37] LABS: Albumin 4.2 g/dL (3.5-5.7); Albumin/Globulin Ratio 1.4 (1.1-2.2); Bilirubin,Direct 0.2 mg/dL (0.0-0.2); Bilirubin,Indirect 0.5 mg/dL (0.0-1.0); Bilirubin,Total 0.7 mg/dL (0.3-1.0); Globulin 2.9 g/dL (2.4-3.5); Total Protein 7.1 g/dL (6.4-8.9)
[2021-03-05 12:39] LABS: BUN/Creatinine Ratio 11 (6-26); Blood Urea Nitrogen 26 mg/dL (8-23); Calcium 9.2 mg/dL (8.6-10.3); Carbon Dioxide 24 mEq/L (23-29); Chloride 109 mEq/L (98-107); Glucose 113 mg/dL (70-105); Osmolality,Calculated 296 (280-300); Potassium 4.4 mEq/L (3.5-5.1); Sodium 140 mEq/L (136-145); Troponin I < 0.03 ng/mL (< 0.04); eGFR For African Americans 31 (> 60); eGFR For Non-African Americans 26 (> 60)
[2021-03-05 14:23] LABS: Bilirubin,Urine Negative (Negative); Blood,Urine Negative (Negative); Clarity,Urine Clear (Clear); Color,Urine Yellow (Yellow); Glucose,Urine (UA) Normal (Normal); Ketones,Urine Negative (Negative); Leukocyte Esterase,Urine Negative (Negative); Nitrite,Urine Negative (Negative); PH,Urine 5.5 pH Units (5.0-8.0); Protein,Urine Trace mg/dL (Neg-Trace); Specific Gravity,Urine 1.019 (1.010-1.025); Urobilinogen,Urine Normal (Normal)
[2021-03-05] MEDS ORDERED: Acetaminophen 325 MG TABLET PO PRN (14:40)
[2021-03-05] MEDS ORDERED: Naloxone 0.4 MG/ML INJ IVP PRN (14:40)
[2021-03-05] MEDS ORDERED: Ondansetron 4 MG/2 ML VIAL IVP PRN (14:40)
[2021-03-05 16:08] LABS: Adenovirus Not Detected (Not Detect); Bordetella Pertussis Not Detected (Not Detect); Chlamydophila pneumoniae Not Detected (Not Detect); Coronavirus 229E Not Detected (Not Detect); Coronavirus HKU1 Not Detected (Not Detect); Coronavirus NL63 Not Detected (Not Detect); Coronavirus OC43 Not Detected (Not Detect); Human Metapneumovirus Not Detected (Not Detect); Human Rhinovirus/Enterovirus Not Detected (Not Detect); Influenza A Subtype 2009 H1 Not Detected (Not Detect); Influenza B Not Detected (Not Detect); Mycoplasma pneumoniae Not Detected (Not Detect); Parainfluenza Virus 1 Not Detected (Not Detect); Parainfluenza Virus 2 Not Detected (Not Detect); Parainfluenza Virus 3 Not Detected (Not Detect); Parainfluenza Virus 4 Not Detected (Not Detect); Respiratory Syncytial Virus Not Detected (Not Detect); SARS-CoV-2 Not Detected (Not Detect)
[2021-03-05] MEDS ORDERED: 0.9 % Sodium Chloride 1,000 ML IVC SCH (16:45)
[2021-03-05] MEDS ORDERED: D5% in Water 1,000 ML IVC PRN (18:45)
[2021-03-05] MEDS ORDERED: *HR* Dextrose 50 % in Water (Syg) 50 ML SYRINGE IVP PRN (18:45)
[2021-03-05] MEDS ORDERED: Dextrose Gel 15 GM/37.5 ML TUBE PO PRN ×2 (18:45)
[2021-03-05] MEDS ORDERED: QUEtiapine Fumarate 25 MG TABLET PO SCH (21:00)
[2021-03-05] MEDS: Aspirin Enteric Coated 81 MG Tablet PO SCH (22:12)
[2021-03-06] MEDS ORDERED: *HR* LORazepam 2 MG/ML VIAL IVP ONE (00:24)
[2021-03-06 02:06] LABS: Basophils % 0.2 %; Hematocrit 32.5 % (37.5-50.1); Immature Granulocytes % 0.2 % (0-4); Mean Platelet Volume 12.5 fL (9.4-12.4); Red Cell Distribution Width 13.2 % (11.5-14.5)
[2021-03-06 02:08] LABS: Eosinophils # 0.1 K/mcL (0.0-0.6); Eosinophils % 1.5 %; Hemoglobin 10.5 g/dL (12.9-16.9); Immature Platelets 8.6 % (1.1-6.1); Lymphocytes # 0.8 K/mcL (0.6-4.6); Lymphocytes % 17.1 %; Mean Corpuscular HGB Conc 32.3 g/dL (31.6-35.5); Mean Corpuscular Hemoglobin 31.9 pg (28.0-33.3); Mean Corpuscular Volume 98.8 fL (83.0-100.0); Monocytes # 0.5 K/mcL (0.0-1.3); Monocytes % 9.7 %; Neutrophils # 3.3 K/mcL (1.6-8.9); Red Blood Count 3.29 M/mcL (4.19-5.50); Segmented Neutrophils % 71.3 %; White Blood Count 4.6 K/mcL (4.3-11.1)
[2021-03-06 02:14] LABS: Platelet Count 89 K/mcL (140-400)
[2021-03-06 02:20] LABS: Calcium 8.1 mg/dL (8.6-10.3); Magnesium 1.9 mg/dL (1.6-2.6); Phosphorous 2.9 mg/dL (2.7-4.5); Potassium 4.9 mEq/L (3.5-5.1)
[2021-03-06] MEDS: Aspirin Enteric Coated 81 MG Tablet PO SCH (08:42)
[2021-03-06] MEDS ORDERED: Multivit/Ca/Min/Fe/FA 1 TAB TABLET PO SCH (09:00)
[2021-03-06 11:10] VITALS: BP 155/80; PULSE 63; TEMP 97.4; O2SAT 96
[2021-03-06] MEDS ORDERED: Haloperidol Lactate 5 MG/ML VIAL IM ONE (15:30)
== END 2021-03-06 16:23 | disposition home health service (06) ==
LOC: 3ANU 11:28 → EMEROOARM 11:28 → 3ANU 16:55
PROVIDERS: ADMIT Internal Medicine; ATTEND Internal Medicine